=== PATIENT | male | born 1990 | race Hispanic/Latino ===

== ENCOUNTER 2016-08-30 14:25 | Emergency (ER) | payer MEDICAID ==
--- NOTE | 2016-08-30 14:46 | CT REPORT ---
HISTORY: Left-sided facial numbness, slurred speech and weakness. COMPARISON: None. TECHNIQUE: Axial non-contrast images obtained from skull vertex through foramen magnum. Dose reduction technique was utilized. FINDINGS: The ventricles, sulci and cisterns are symmetric and age appropriate. There is no intra-axial hemorrh age, mass, midline shift or large vessel acute territorial infarct. There is no extra axial fluid col lection. The globes are intact. The paranasal sinuses appear clear. The mastoids appear well. The bones and so ft tissues appear unremarkable. There is no evidence of skull fracture or soft tissue hematoma. IMPRESSION: Normal head CT. Final Electronic Signature: This report was electronically signed by Karthik Feliciano MD on 08/31/19 17 2:43 PM. claritza /
[2016-08-30 14:49] LABS: BASOPHIL# 0.1 X 10^3uL (0.0-0.1); BASOPHILS 0.9 % (0.0-2.0); EOSINOPHILS 2.7 % (0.0-6.0); EOSINOPHILS# 0.2 X 10^3uL (0.0-0.4); HEMATOCRIT 47.3 % (42.0-54.0); HEMOGLOBIN 16.6 g/dL (14.0-18.0); LYMPHOCYTES 35.5 % (20.0-40.0); LYMPHOCYTES# 2.4 X 10^3uL (0.8-3.8); MEAN CELL VOLUME 81.6 fL (80.0-100.0); MEAN CORPUSCULAR HEMOGLOBIN 28.6 pg (29.0-35.0); MEAN PLATELET VOLUME 8.5 fL (7.4-10.4); MONOCYTES 6.6 % (2.0-10.0); MONOCYTES# 0.4 X 10^3uL (0.2-1.0); NEUTROPHILS 54.3 % (54.0-75.0); NEUTROPHILS# 3.6 X 10^3uL (2.6-6.7); PLATELET COUNT 286 X 10^3uL (130-440); RED CELL DISTRIBUTION WIDTH 12.2 % (11.5-14.5); WHITE BLOOD COUNT 6.8 X 10^3uL (3.9-10.7)
[2016-08-30 14:54] LABS: BLOOD UREA NITROGEN 12 mg/dL (9-20); CALCIUM 9.5 mg/dL (8.4-10.2); CHLORIDE 103 mmol/L (98-107); EST GLOMERULAR FILTRATION RATE > 60 mL/min; GLUCOSE 110 mg/dL (70-100); SODIUM 141 mmol/L (137-145)
[2016-08-30] MEDS ORDERED: FENTANYL 100 MCG/2 ML VIAL ONE (16:12)
--- NOTE | 2016-08-30 16:23 | ER NURSING DOCUMENTATION ---
Nurse's Notes [facility] Name:Van Vogt Age:26 yrs Sex:Male :1990 Arrival Date:08/30/2016 Time:14:20 Bed1 Private MD: Diagnosis:Paresthesia (Neuropathy) Presentation: 08/30 14:22 Acuity: CHARLES 2 rh 14:36 Presenting complaint: Patient states: Pt was sitting on the couch and felt his left arm rh twitching, he felt his face "twist" to the left and become numb. Pt also stated that his eye on the left was moving back and forth very fast and he now has a pressure like headache on the left side. Transition of care: Home. 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 14:36 Method Of Arrival: Private Vehicle rh 15:32 Pre-hospital glucose is not applicable to this patient. tg Triage Assessment: 14:38 The onset of the patients symptoms was less than three hours ago. General: Appears in rh no apparent distress, Behavior is cooperative. Pain: Complains of pain in left frontal area. EENT: Oral mucosa is moist. Neuro: Level of Consciousness is awake, alert, obeys commands, Oriented to person, place, time, event, Senior Medical Director are weak on left Moves all extremities. Gait is steady, Speech is normal, Facial droop on left, Numbness in left cheek Reports headache numbness weakness in left arm. Cardiovascular: Capillary refill < 3 seconds Denies lightheadedness, Chest pain is denied. Respiratory: Airway is patent Respiratory effort is even, unlabored, Denies shortness of breath. GI: Abdomen is non- distended Denies diarrhea, nausea, vomiting. : No deficits noted. Derm: Skin is intact, is healthy with good turgor, Skin is pink, warm & dry. Historical: - Allergies: Vicodin; Aspirin; - Home Meds: 1. None - PMHx: LEGALLY BLIND; - PSHx: HEART ABLATION; - Tetanus: < 10 years. - Ebola Screening: : Patient negative for fever greater than or equal to 101.5 degrees Fahrenheit, and additional compatible Ebola Virus Disease symptoms. - Immunization history: Flu Vaccine < 1 year. - Social history: Smoking status: Patient states was never smoker of tobacco. Screenin:41 Infectious Disease Risk None. Abuse screen: Denies threats or abuse. Denies injuries rh from another. Nutritional screening: No deficits noted. Assessment: 14:40 See Triage Assessment done by same RN. rh 15:44 Reassessment: [facility] waiting for bed assignment, has asked us to hold patient in [facility] ED. . Vital Signs: 14:20 BP 125 / 87 RA Sitting (auto/reg); Pulse 85 RA; Resp 16 S; Temp 97.9(O); Pulse Ox 93% em3 on R/A; Weight 94.35 kg (R); Height 5 ft. 11 in. (180.34 cm) (R); Pain 8/10; 15:22 BP 135 / 79; Pulse 86; Resp 15; Pulse Ox 95% on R/A; Pain 8/10; em3 14:20 Body Mass Index 29.01 (94.35 kg, 180.34 cm) em3 NIH Stroke Scale Scores: 14:41 NIHSS Score: 4 rh ED Course: 14:20 Patient arrived in ED. em3 14:20 acid dumper on. Pulse ox on. NIBP on. rh 14:22 Shasha Castano is Primary Nurse. rh 14:22 Triage completed. rh 14:22 Valuables Remains with patient Patient has correct armband on for positive em3 identification. Bed in low position. Call light in reach. Side rails up X2. 14:30 Notified ED Physician of patient's arrival and chief complaint. Dr. Hayden notified. rh 14:[address] hz 14:36 Labs drawn. By light bulb tester Sent per order to lab. Inserted saline lock: 18 gauge in right em3 antecubital area and blood collected. 14:39 Patient moved back from CT. hz 14:44 CAT SCAN; HEAD W/O CON 16198 In Process Unspecified. EDMS 14:45 EKG done. (by ED staff). Reviewed by Benjamin Hayden MD. em3 14:46 Benjamin Hayden MD is Attending Physician. sc 15:06 Report given to GLORIA Weinstein RN. rh 15:32 EKG attached Administered Medications: 14:26 CANCELLED (Other Intervention Used): niCARdipine IVPB 5 mg/hr IV at calculated rate rh continuous; May increase rate 2.5 mg/hr every 5 minutes to max 15 mg/hr 16:09 Drug: fentaNYL (PF) 50 mcg; Route: IVP; Site: right antecubital; tg 16:13 Follow up: Response: Pain is decreased tg Point of Care Testing: Blood Glucose: 14:47 Blood Glucose: 171 mg/dL; rh Ranges: Outcome: 15:40 ER care complete, transfer ordered by MD. mora 16:09 Transferred: Patient will be transferred to: [facility]. Facility tg Acceptance Time: August 30, 2016 at 16:00 Patient's face sheet was faxed to accepting facility. Face Sheet included patient's name, address, age, gender, contact information and insurance information. Patient will be transported by: [facility] ground. Report called to: IMANI Mireles at [facility] Nurse and Physician Charting and Notes were sent to Accepting Facility. All tests and/or procedures with results, if applicable, were sent to accepting facility. 16:21 Condition: unchanged tg 16:21 Discharge Assessment: Patient awake and alert. 16:21 Instructed on need for transfer 16:21 Patient left the ED. tg NIH Stroke Scale - NIH Stroke Score Date: 08/30/2016 Time: 14:41 Total Score = 4 1a. Level of Consciousness (LOC) - 0(Alert) 1b. Level of Consciousness (LOC) (Year & Age) - 0(Both) 1c. LOC Commands (Open & Closes Eyes/Prime Minister) - 0(Both) 2. Best Gaze (Lateral Gaze Paresis) - 0(Normal) 3. Visual Field Loss - 3(Bilateral hemianopia) 4. Facial Palsy - 1(Minor Paralysis) 5a. Left Arm: Motor (10-second hold) - 0(No drift) 5b. Right Arm: Motor (10-second hold) - 0(No drift) 6a. Left Leg: Motor (5-second hold ? always test supine) - 0(No drift) 6b. Right Leg: Motor (5-second hold ? always test supine) - 0(No drift) 7. Limb Ataxia (finger/nose & heel/govea ? test with eyes open) - 0(Absent) 8. Sensory Loss (pinprick arms/legs/face) - 0(Normal) 9. Best Language: Aphasia (description/naming/reading) - 0(No aphasia) 10. Dysarthria (speech clarity ? read or repeat words) - 0(Normal) 11. Extinction and Inattention (visual/tactile/auditory/spatial/personal) - 0(No abnormality) Initials: Signatures: Dispatcher [employer] Damaso Rosenberg, RN RN Benjamin Tapia MD MD sc Meiklejohn, Eric em3 Hofsess, Rachel Hanane Leone
--- NOTE | 2016-08-30 16:23 | ER PHYSICIAN DOCUMENTATION ---
Physician Documentation [facility] Name:Van Vogt Age:26 yrs Sex:Male :1990 Arrival Date:08/30/2016 Time:14:20 Bed1 Private MD: Benjamin Vera Disposition: 08/30/16 15:40 Transfer ordered to [facility]. Diagnosis is Paresthesia (Neuropathy). - Reason for transfer: Specialty. - Accepting physician is Hospitalist salesperson parts. - Condition is Good. - Problem is new. - Symptoms have improved. COBRA Form completed? Yes Transfer - Mode of Transportation Ambulance HPI: 08/30 15:24 This 26 yrs old Male presents to ER via Private Vehicle with complaints of sc Weakness - Left side. 15:24 The patient presents to the emergency department with weakness of the left upper sc extremity, left side of the face, paresthesias of the left upper extremity, left side of the face. Onset: The symptom(s)/episode began/occurred just prior to arrival. Context: occurred at home, occurred while the patient was at rest, sitting. Associated signs and symptoms: Pertinent positives: seizure. Severity of symptoms: At their worst the symptoms were moderate in the emergency department the symptoms are unchanged. Patient's baseline: The patient has a previous history of blindness. This patient does not have any risk factors related to a stroke or transient ischemic attack. The patient has not experienced similar symptoms in the past. Historical: - Allergies: Vicodin; Aspirin; - Home Meds: 1. None - PMHx: LEGALLY BLIND; - PSHx: HEART ABLATION; - Tetanus: < 10 years. - Ebola Screening: : Patient negative for fever greater than or equal to 101.5 degrees Fahrenheit, and additional compatible Ebola Virus Disease symptoms. - Immunization history: Flu Vaccine < 1 year. - Social history: Smoking status: Patient states was never smoker of tobacco. ROS: 15:25 Constitutional: Negative for fever, chills, and weight loss. sc ENT: Negative for injury, pain, and discharge. Neck: Negative for injury, pain, and swelling. Cardiovascular: Negative for chest pain, palpitations, and edema. Respiratory: Negative for shortness of breath, cough, wheezing, and pleuritic chest pain. Abdomen/GI: Negative for abdominal pain, nausea, vomiting, diarrhea, and constipation. Back: Negative for injury and pain. MS/Extremity: Negative for injury and deformity. 15:25 Skin: Negative for injury, rash, and discoloration. sc 15:25 Eyes: Positive for vision loss. 15:25 Neuro: Positive for numbness, seizure activity, weakness. Exam: Constitutional: This is a well developed, well nourished patient who is awake, alert, and in no acute distress. Head/Face: Normocephalic, atraumatic. ENT: Nares patent. No nasal discharge, no septal abnormalities noted. Tympanic membranes are normal and external auditory canals are clear. Oropharynx with no redness, swelling, or masses, exudates, or evidence of obstruction, uvula midline. Mucous membranes moist. Neck: Trachea midline, no thyromegaly or masses palpated, and no cervical lymphadenopathy. Supple, full range of motion without nuchal rigidity, or vertebral point tenderness. No meningismus. Chest/axilla: Normal chest wall appearance and motion. Nontender with no deformity. No lesions are appreciated. Cardiovascular: Regular rate and rhythm with a normal S1 and S2. No gallops, murmurs, or rubs. Normal PMI, no JVD. No pulse deficits. Respiratory: Lungs have equal breath sounds bilaterally, clear to auscultation and percussion. No rales, rhonchi or wheezes noted. No increased work of breathing, no retractions or nasal flaring. Abdomen/GI: Soft, non-tender, with normal bowel sounds. No distension or tympany. No guarding or rebound. No evidence of tenderness throughout. Back: No spinal tenderness. No costovertebral tenderness. Full range of motion. 15:26 Skin: Warm, dry with normal turgor. Normal color with no rashes, no lesions, and no sc evidence of cellulitis. 15:26 Eyes: Pupils: no acute changes, Extraocular movements: blind, roving eye movements. 15:26 Cardiovascular: Rate: normal, Rhythm: regular. 15:41 Neuro: Motor: very similar on exam but pt feel left arm weak, Sensation: numbness, sc that is moderate, of the left arm and face. Vital Signs: 14:20 BP 125 / 87 RA Sitting (auto/reg); Pulse 85 RA; Resp 16 S; Temp 97.9(O); Pulse Ox 93% em3 on R/A; Weight 94.35 kg (R); Height 5 ft. 11 in. (180.34 cm) (R); Pain 8/10; 15:22 BP 135 / 79; Pulse 86; Resp 15; Pulse Ox 95% on R/A; Pain 8/10; em3 14:20 Body Mass Index 29.01 (94.35 kg, 180.34 cm) em3 NIH Stroke Scale Scores: 14:41 NIHSS Score: 4 rh MDM: 14:46 Patient medically screened. wy 15:27 Neurological re-evaluation: all normal except: paresthesias. The patient was last known wy to be well at August 30, 2016 at 14:00. Thrombolytics: No thrombolytic given due to CT findings due to patient's history. Data reviewed: vital signs, nurses notes, lab test result(s), EKG, radiologic studies, and as a result, I will *Transfer Patient. Counseling: I had a detailed discussion with the patient and/or guardian regarding: the historical points, exam findings, and any diagnostic results supporting the discharge/admit diagnosis, lab results, radiology results, the need to transfer to another facility. 15:32 EKG attached tg 15:40 Physician consultation: Dr. Mosqueda was called at 15:41, was contacted at 15:41, regarding wy admission. 08/30 14:52 Order name: CBC AUTO DIF, MDIF/RMOR IF IND; Complete Time: 15:13 [facility] 08/30 15:13 Interpretation: Normal. wy 08/30 14:55 Order name: BASIC METABOLIC PANEL; Complete Time: 15:13 [facility] 08/30 15:13 Interpretation: Normal. wy 08/30 14:44 Order name: CAT SCAN; HEAD W/O CON [id number] [facility] 08/30 14:47 Order name: CAT SCAN; HEAD W/O CON [id number]; Complete Time: 14:49 [facility] 08/30 14:48 Interpretation: Normal. wy 08/30 14:26 Order name: 12-lead EKG; Complete Time: 14:36 08/30 14:26 Order name: Continuous Cardiac Monitoring; Complete Time: 14:36 08/30 14:26 Order name: I & O; Complete Time: 14:36 08/30 14:26 Order name: IV saline lock X2; Complete Time: 14:36 08/30 14:26 Order name: NIH Stroke Scale; Complete Time: 14:36 rh 08/30 14:26 Order name: NPO; Complete Time: 14:36 rh 08/30 14:26 Order name: Pulse Ox Continuous; Complete Time: 14:36 rh Dispensed Medications: 14:26 CANCELLED (Other Intervention Used): niCARdipine IVPB 5 mg/hr IV at calculated rate rh continuous; May increase rate 2.5 mg/hr every 5 minutes to max 15 mg/hr 16:09 Drug: fentaNYL (PF) 50 mcg; Route: IVP; Site: right antecubital; tg 16:13 Follow up: Response: Pain is decreased tg Point of Care Testing: Blood Glucose: 14:47 Blood Glucose: 171 mg/dL; rh Ranges: Critical Glucose Levels:Adult <50 mg/dl or >400 mg/dl <40 mg/dl or >180 mg/dl NIH Stroke Scale - NIH Stroke Score Date: 08/30/2016 Time: 14:41 Total Score = 4 1a. Level of Consciousness (LOC) - 0(Alert) 1b. Level of Consciousness (LOC) (Year & Age) - 0(Both) 1c. LOC Commands (Open & Closes Eyes/Wafer Production Worker) - 0(Both) 2. Best Gaze (Lateral Gaze Paresis) - 0(Normal) 3. Visual Field Loss - 3(Bilateral hemianopia) 4. Facial Palsy - 1(Minor Paralysis) 5a. Left Arm: Motor (10-second hold) - 0(No drift) 5b. Right Arm: Motor (10-second hold) - 0(No drift) 6a. Left Leg: Motor (5-second hold ? always test supine) - 0(No drift) 6b. Right Leg: Motor (5-second hold ? always test supine) - 0(No drift) 7. Limb Ataxia (finger/nose & heel/govea ? test with eyes open) - 0(Absent) 8. Sensory Loss (pinprick arms/legs/face) - 0(Normal) 9. Best Language: Aphasia (description/naming/reading) - 0(No aphasia) 10. Dysarthria (speech clarity ? read or repeat words) - 0(Normal) 11. Extinction and Inattention (visual/tactile/auditory/spatial/personal) - 0(No abnormality) Initials: Signatures: Damsao Mcdaniels RN RN Benjamin Tapia MD MD sc Hofsess, Rachel
[2016-08-30] MEDS ORDERED: FENTANYL 250 MCG/5 ML VIAL ONE (19:43)
== END 2016-08-30 16:22 | disposition short-term general hospital (02) ==
LOC: ER 14:25
DX: R20.2 Paresthesia of skin (principal); G81.94 Hemiplegia, unspecified affecting left nondominant side; R29.704 NIHSS score 4; H54.8 Legal blindness, as defined in USA
CPT/HCPCS: 36415; 70450; 80048; 85025; 93005; 96374; 99285; A0425; A0427